=== PATIENT | female | born 1940 | race Caucasian/White ===

== ENCOUNTER 2016-09-16 06:18 | Emergency (ER) | payer MEDICARE, BC ==
[~2016-09-16] VITALS: Ht 160 cm; Wt 79.4 kg
[~2016-09-16 06:18] MED LIST: BACTRIM DS TABL1 TA1 PO; DIOVAN PO; LORTAB 5/500 TA1 TA1 PO
== END 2016-09-16 07:59 | disposition home or self-care (01) ==
LOC: CED 06:18
DX: S60.561A Insect bite (nonvenomous) of right hand, initial encounter (principal); E78.5 Hyperlipidemia, unspecified; I10 Essential (primary) hypertension; Z87.442 Personal history of urinary calculi; Z23 Encounter for immunization; W57.XXXA Bitten or stung by nonvenomous insect and other nonvenomous arthropods, initial encounter; Y92.89 Other specified places as the place of occurrence of the external cause
CPT/HCPCS: 82947; 90471; 90715; 99283